=== PATIENT | female | born 1965 | race Caucasian/White ===

== ENCOUNTER 2024-11-30 03:51 | Inpatient (IN) | payer BC, SELFPAY ==
[2024-11-29 17:43] VITALS: BP 160/88
[2024-11-29 17:59] LABS: % Basophils 0.8 % (0-2); % Eosinophils 0.9 % (0-6); % Immature Granulocytes 0.3 % (0-0.5); % Lymphocytes 18.6 % (20.5-51.1); % Monocytes 4.9 % (1.7-9.3); % Neutrophils 74.5 % (42.2-75.2); Absolute Basophils 0.1 10^3/uL (0-0.2); Absolute Eosinophils 0.1 10^3/uL (0-0.7); Absolute Lymphocytes 1.6 10^3/uL (1.2-3.4); Absolute Monocytes 0.4 10^3/uL (0.1-0.6); Absolute Neutrophils 6.5 10^3/uL (1.4-6.5); Hematocrit 39.6 % (37.0-47.0); Hemoglobin 13.2 g/dL (12.0-16.0); Mean Corp Hgb Conc. 33.3 g/dL (33.0-37.0); Mean Corpuscular Hgb 29.8 pg (27.0-31.0); Mean Corpuscular Volume 89.4 fL (81.0-99.0); Mean Platelet Volume 8.9 fL (7.4-10.4); Nucleated Red Blood Cells % 0 %; Platelet Count 307 10^3/uL (130-400); Red Blood Cell Count 4.43 10^6/uL (4.20-5.40); Red Cell Dist. Width 12.7 % (11.5-14.5); White Blood Cell Count 8.8 10^3/uL (4.8-10.8)
[2024-11-29 18:12] LABS: PT 17.5 Sec (11.4-14.6)
[2024-11-29 18:28] LABS: ALT (SGPT) 20 U/L (0-35); AST (SGOT) 19 U/L (14-36); Albumin 4.2 g/dl (3.5-5.0); Alkaline Phosphatase 78 U/L (38-126); Blood Urea Nitrogen 15 mg/dl (7-17); Calcium 9.6 mg/dl (8.4-10.2); Carbon Dioxide 29 mmol/L (22-30); Chloride 104 mmol/L (98-107); Glucose 107 mg/dl (70-99); Potassium 4.6 mmol/L (3.5-5.1); Sodium 141 mmol/L (135-145); Total Bilirubin 0.4 mg/dl (0.2-1.3); Total Protein 7.3 g/dl (6.3-8.2); eGFR > 60.00
[2024-11-29 18:34] LABS: Troponin I < 0.012 ng/ml
[2024-11-29 20:15] VITALS: BP 149/85
[2024-11-29 20:16] VITALS: BMI 34.1
[2024-11-29 21:00] VITALS: BP 151/67
--- NOTE | 2024-11-29 21:16 | ED.GENMED ---
History of Present Illness
General
Chief Complaint: Cardiac Symptoms
Source: patient
Exam Limitations: none
Time Seen by Provider: 11/29/24 21:01
Nursing documentation reviewed up to this point in time: agreed with except (She denies shortness of breath to me)
History of Present Illness
History of Present Illness:
59-year-old female with past medical history of asthma/COPD, pulmonary embolism on Coumadin presents to the emergency room for evaluation of chest pain. Patient reports onset of symptoms early this morning at 4 AM while she was sleeping�woke her up
from sleep. Has been constant since that time. She reports a tightness in the chest right greater than left. Does not radiate. Worse with breathing. No relieving factors noted. Has been constant all day which prompted her to come to the ER.
She says she has had similar symptoms with PE in the past. She denies any shortness of breath. Denies any nausea, vomiting, abdominal pain. She denies any swelling or pain in the legs. She denies any other complaints. She reports compliance
with her Coumadin.
Past History
Past History
ED Past Medical History: Other (Pulmonary embolism)
Social History
Tobacco: Non-smoker
Drug: None
Review of Systems
Review of Systems
All Other Systems: ROS reviewed and negative except as documented in HPI and ROS
Constitutional: Denies fever or chills
Respiratory: Denies cough or trouble breathing
Cardiac: Reports chest pain
ABD/GI: Denies abdominal pain, nausea or vomiting
: Denies flank pain
Musculoskeletal: Denies edema, neck pain or back pain
Neurological: Denies headache
Phy Exam
Physical Exam
Physical Exam:
General: Awake, alert, oriented x3; no acute distress
Head: Normocephalic, atraumatic
Eyes: Conjunctiva normal
Throat: Airway intact, handling secretions
Neck: Trachea midline, supple without meningismus
Lungs: Clear to auscultation bilaterally, no wheezing, rales, rhonchi
Heart: Regular rate and rhythm, no murmurs, gallops, or rubs
Abd: Soft, non distended, mild upper abdominal tenderness
Neuro: No gross deficits
Skin: no rash in area of concern
Extremities: No edema in extremities, no calf tenderness, equal pulses in all extremities
Scores
Heart Failure Risk
Heart Failure Risk Score: Not Applicable
Heart Score for Chest Pain Patients
STEMI patient?: No
History: Slightly or Non-Suspicious
ECG: Normal
Age: >45 - <65 years
Risk Factors: 1 or 2 Risk Factors
Troponin: </= Normal Limit
Heart Score for Chest Pain Patients: 2
Heart Score Risk: 2.5% MACE over next 6 weeks
PE Wells Score
Symptoms of DVT: No
No alternative diagnosis better explains the illness: Yes
Tachycardia with pulse > 100: No
Immobilization (>=3 days) or surgery within previous 4 weeks: No
Prior history of DVT or pulmonary embolism: Yes
Presence of hemoptysis: No
Presence of malignancy: No
Pulmonary Embolism Risk Score: 7.5
Probability of PE: Pt is high risk
Withdrawal Assessment of Alcohol
Withdrawal Assessment Completed?: Not applicable
Course
Orders/Labs/Results
Orders:
Orders
11/29/24 17:38
ECG [Electrocardiogram (*1)] Urgent
Reason for Study: Chest Pain
EKG- Treatment ONCE
11/29/24 17:51
Complete Blood Count/With Diff Urgent
Comprehensive Metabolic Panel Urgent
Lipase Urgent
Comment: ADD ON
PT/INR [Prothrombin Time] Urgent
Troponin I Urgent
11/29/24 21:03
CT Chest PE Study Urgent
Comment:
Reason For Exam: chest pain, SOB, h/o PE
11/29/24 21:48
Troponin I Urgent
11/29/24 22:52
US Abdomen Limited Urgent
Reason For Exam: right sided CP, abdnormal GB on CT
11/29/24 23:02
Add On- LAB Urgent
Tests Added?: lipase
11/30/24 00:03
CefTRIAXone [Rocephin] 1,000 mg IV NOW STA
MetroNIDAZOLE IVPB 500 mg IVPB NOW MetroNIDAZOLE 500 MG/100 ML [Flagyl 500 mg] 100 ml IV NOW
Abnormal Lab Results
11/29/24
17:51
Lymphocytes % 18.6 L %
(20.5-51.1)
PT 17.5 H Sec
(11.4-14.6)
Glucose 107 H mg/dl
(70-99)
11/29/24 17:51
11/29/24 17:51
Vital Signs
Initial and Last Documented VS:
Initial Vital Signs
Temp Pulse Resp BP Pulse Ox
36.7 C 98 16 160/88 98
11/29/24 17:43 11/29/24 17:43 11/29/24 17:43 11/29/24 17:43 11/29/24 17:43
Last Documented Vital Signs
Temp Pulse Resp BP Pulse Ox
36.7 C 82 15 149/80 98
11/29/24 17:43 11/29/24 21:15 11/29/24 21:15 11/29/24 23:45 11/29/24 23:45
MDM/Problems Addressed
Differential Diagnosis Includes:
PE, angina/ACS, costochondritis, pneumonia, pneumothorax, GERD, hepatobiliary pathology
MDM/Problems Addressed:
59-year-old female presents for right atypical chest pain right sided constant since 4 AM. She says similar to prior PEs. She is on Coumadin reports compliance. Hypertensive otherwise normal vitals. Physical exam as above. EKG shows sinus rhythm
no acute ischemic changes. She had labs sent in triage including a CBC and a CMP which showed no clinically significant abnormalities. Her initial troponin was undetectable. Her INR is subtherapeutic at 1.4. Will check CT chest to rule out PE.
Monitor closely reassess after the above.
CT chest reviewed shows no PE but does show incidentally findings concerning for cholecystitis�Limited evaluation given this is a CT chest will send for dedicated ultrasound of the upper abdomen. She denies any history of gallbladder issues; she
does have tenderness on exam. Reassess after the above.
Right upper quadrant ultrasound is positive for acute cholecystitis. Will treat antibiotics. Discussed with general surgery for consultation. Discussed with hospitalist for admission.
Chronic conditions affecting care:
PE on Coumadin
Acute Exacerbation and/or Progression of Chronic Illness:
Hypertensive
Acute Exacerbation and/or Progression of Chronic Illness: HTN
*Radiology
Radiology exam reviewed: radiology read reviewed
*Pulse Oximetry
Patient hypoxic: no
*EKG
Interpreted by ED Provider?: Yes
Heart Rate: 90
Rate: normal
Rhythm: sinus
[place]: normal axis
Interval: normal interval
QRS Pattern: normal QRS
Ischemia: no ischemia
*Critical Care Note
Total Time (30-74mins, 75-104mins- exclusive of procedures): Not Applicable
Data Reviewed
Review of Other/Old Records Reveals: Labs and Records
Source: patient and records
Patient Management
Discussion with other providers: Hospitalist (Discussed with hospitalist) and [employer] (Discussed with general surgeon)
Escalation/DeEscalation of care consider admission/obs:
Admission indicated
ED Attending Note
-
Portions of this chart may have been created with voice recognition software.� Occasional wrong word or��sound alike� substitutions may have occurred due to the inherent limitations of voice recognition software.
Discharge Plan
Departure
Prescriptions:
No Action
tramadol 50 MG tablet
100 mg PO BID
albuterol sulfate [Ventolin HFA] 90 MCG/PUFF HFA aerosol inhaler
2 puff inhalation Q4H PRN (Reason: sob)
cholecalciferol (vitamin D3) [Vitamin D3] 400 UNITS tablet
2,000 units PO DAILY
armodafinil [Nuvigil] 250 MG tablet
250 mg PO DAILY
eukkeinlgkru-nsc-csuy-FA-vit K [Multi For Her] 1 EACH capsule
1 ea PO DAILY
sertraline 100 MG tablet
100 mg PO DAILY
simvastatin 20 MG tablet
20 mg PO HS
ferrous gluconate 256 MG tablet
28 mg PO BID
Patient Comments:
patient ordered 28 mg tablet, difficulty making this entry.
warfarin [Jantoven] 5 MG tablet
5 mg PO TONIGHT AT 1800 Qty: 30 0RF
docusate sodium 100 MG capsule
100 mg PO BID Qty: 60 0RF
amoxicillin-pot clavulanate 1 TABLET tablet
1 tab PO Q12 Qty: 4 0RF
enoxaparin 80 MG/0.8 ML syringe
80 mg SC Q12H Qty: 14 0RF
Referrals:
Jared Thompson MD [Family Provider] -
Interventions
Interventions:
*Risk Screen - Suicide Last Done: 11/29/24 17:43
*General Assessment Last Done: 11/29/24 21:00
*Neglect/Abuse Screening Last Done: 11/29/24 17:43
*ED- Fall Risk Assessment Last Done: 11/29/24 21:00
*ED COVID-19 Vaccine History Last Done: 11/29/24 21:00
ED- Pulmonary Assessment Last Done: 11/29/24 20:16
ED- Cardiac Assessment Last Done: 11/29/24 20:16
Discharge Date and Time
Print Language: KHMER
[2024-11-29 22:20] LABS: Troponin I < 0.012 ng/ml
[2024-11-29 23:45] VITALS: BP 149/80
[2024-11-29 23:47] LABS: Lipase 280 U/L (23-300)
[2024-11-30] VITALS (17 sets, daily range): BP systolic 91–158; BP diastolic 58–84; BMI 35.6
[2024-11-30] MEDS: MORPHINE SULFATE 4 MG IV (00:27)
[2024-11-30] MEDS: ROCEPHIN 1000 MG IV (00:30)
[2024-11-30] MEDS: FLAGYL 500 MG 100 IV (00:44)
[2024-11-30] MEDS: DILAUDID 0.5 MG IV ×4 (01:59→17:05)
--- NOTE | 2024-11-30 03:46 | HPS.HSE ---
Family Physician
-
Family Physician: Jared Thompson MD
Chief Complaint
-
Abd Pain
History of Present Illness
Patient is a 59y F with PMH significant for hypercoagulable state / prior PEs who presents to ED complaining of abdominal pain. Patient states that pain woke her from sleep around 4 AM on Friday morning. the pain was in the R lower chest /
upper abdomen. No radiation of the pain. No associated SOB, N/V, fevers / chills, etc. Patient states that pain was similar to her prior PE episodes. She presented to the ED for further evaluation after the pain persisted throughout the day.
Evaluation in the ED reveals no evidence for PE, but positive acute cholecystitis.
Patient is on warfarin for history of PE (last was 10 years ago). Last dose of warfarin was Friday evening. INR today is subtherapeutic at 1.40.
Medical History
Past Medical History
Past Medical History: Reports Other
Additional Past Medical History:
Hypercoagulable State / Pulmonary Embolism x 2
Obesity
Anxiety / Depression
Chronic Back Pain
Past Surgical History: Reports Other
Additional Past Surgical History:
Bilateral Breast Reduction
Social History
Tobacco: Former Smoker (Quit smoking at age 40. Approx 10 pack years total use.)
Alcohol: None
Drug: None
Family History
Family History: Not pertinent
Allergies / Home Medications
Allergies reflects when Allergies were last updated in [facility].
Home Medications with original date entered in [facility]
Allergy/Medication List:
Allergies
Allergy/AdvReac Type Severity Reaction Status Date / Time
alcohol Allergy Unknown Verified 11/29/24 17:46
bupropion Allergy Rash Verified 11/29/24 17:46
tape Allergy Rash Uncoded 11/29/24 17:46
Home Medications
cholecalciferol (vitamin D3) 10 mcg (400 unit) tablet (Vitamin D3) 2,000 units PO DAILY 11/15/15
ferrous gluconate 256 mg (28 mg iron) tablet 28 mg PO BID 06/11/15
nyhqobvjd-ivc-xdnw fumarate 18 mg-FA 600 mcg-vit K 40 mcg capsule (Multi For Her) 1 ea PO DAILY 06/11/15
simvastatin 20 mg tablet 20 mg PO HS 06/11/15
tramadol 50 mg tablet 100 mg PO BID 06/11/15
bupropion HCl 300 mg 24 hr tablet, extended release 300 mg PO DAILY 11/30/24
dextroamphetamine-amphetamine 20 mg tablet 20 mg PO BID 11/30/24
fluoxetine 20 mg tablet 20 mg PO DAILY 11/30/24
riboflavin (vitamin B2) 400 mg tablet 400 mg PO DAILY 11/30/24
tramadol 37.5 mg-acetaminophen 325 mg tablet 1 tab PO BID PRN Pain 11/30/24
warfarin 10 mg tablet 10 mg PO MOTUWETHFRSA 11/30/24
warfarin 5 mg tablet 5 mg PO DOAN 11/30/24
Review of Systems
-
History Source: Patient
A 12 point ROS was completed and negative except as noted: Yes
Constitutional: Denies Fever or Chills
Respiratory: Denies Cough or Trouble Breathing
Cardiac: Reports Chest Pain
Abdomen/GI: Reports Abdominal Pain; Denies Nausea, Vomiting or Diarrhea
: Denies Dysuria or Frequency
Musculoskeletal: Denies Joint Pain or Edema
Neurological: Denies Dizzy or Headache
Physical Exam
Vital Signs
Vital Signs
Temp Pulse Resp BP Pulse Ox
98.0 F 82 15 158/76 100
11/29/24 17:43 11/29/24 21:15 11/29/24 21:15 11/30/24 01:30 11/30/24 01:30
Physical Exam
General: Other (59y F in no acute distress.)
HEENT: Moist mucous membranes and PERRLA
Respiratory: Clear; No Wheezes, Rales or Rhonchi
Cardiac: S1/S2 and Regular Rhythm; No Murmur
GI: Soft, Non Distended, Normal Bowel Sounds and Other (Pos RUQ tenderness and voluntary guarding.)
Musculoskeletal: No Clubbing, No Cyanosis and No Edema
Neuro: AO x 3
Laboratory Results
-
11/29/24 17:51
11/29/24 17:51
Laboratory Results
PT 17.5 Sec (11.4-14.6) H 11/29/24 17:51
INR 1.40 11/29/24 17:51
Total Bilirubin 0.4 mg/dl (0.2-1.3) 11/29/24 17:51
AST 19 U/L (14-36) 11/29/24 17:51
ALT 20 U/L (0-35) 11/29/24 17:51
Alkaline Phosphatase 78 U/L (38-126) 11/29/24 17:51
Troponin I < 0.012 ng/ml 11/29/24 21:48
Lipase 280 U/L (23-300) 11/29/24 17:51
Impression/Plan
-
A/P: Patient is a 59y F with PMH significant for hypercoagulable state and obesity who presents to ED complaining of abdominal pain.
Acute Cholecystitis
- Admit for further evaluation and treatment.
- US with gallbladder wall thickening, pericholecystic fluid and positive Shepard's sign.
- IV Zosyn for now. NPO, supportive care / pain control.
- Surgery consulted for possible cholecystectomy.
Hypercoagulable State
History of Pulmonary Emboli x 2
- Undefined hypercoagulable state. Prior PE x 2 - most recent was 10 years ago.
- INR currently subtherapeutic and last dose of warfarin was Friday evening (5mg).
- Follow daily INR.
- If surgery is planned for later today, would begin IV heparin post-op and bridge with Coumadin until INR therapeutic.
- If surgery postponed for any period, would bridge with heparin pre- and post-op.
Anxiety / Depression
- Hold Adderall acutely.
- Continue fluoxetine / bupropion.
Chronic Back Pain
- Continue standing tramadol.
- Dilaudid PRN for acute pain due to cholecystitis.
DVT Prophylaxis: IV heparin to Coumadin bridge as noted above.
Code Status: Full
[2024-11-30 06:12] LABS: Hematocrit 38.1 % (37.0-47.0); Hemoglobin 12.9 g/dL (12.0-16.0); Mean Corp Hgb Conc. 33.9 g/dL (33.0-37.0); Mean Corpuscular Hgb 29.7 pg (27.0-31.0); Mean Corpuscular Volume 87.6 fL (81.0-99.0); Mean Platelet Volume 8.7 fL (7.4-10.4); Platelet Count 250 10^3/uL (130-400); Red Blood Cell Count 4.35 10^6/uL (4.20-5.40); Red Cell Dist. Width 12.7 % (11.5-14.5); White Blood Cell Count 8.2 10^3/uL (4.8-10.8)
[2024-11-30 06:21] LABS: PT 18.4 Sec (11.4-14.6)
[2024-11-30 06:49] LABS: ALT (SGPT) 606 U/L (0-35); Albumin 4.5 g/dl (3.5-5.0); Alkaline Phosphatase 189 U/L (38-126); Blood Urea Nitrogen 13 mg/dl (7-17); Calcium 9.4 mg/dl (8.4-10.2); Carbon Dioxide 27 mmol/L (22-30); Chloride 103 mmol/L (98-107); Direct Bilirubin 0.8 mg/dl (0.0-0.4); Estimated Creatinine Clearance 83 ml/min; Glucose 147 mg/dl (70-99); Potassium 4.6 mmol/L (3.5-5.1); Sodium 140 mmol/L (135-145); Total Bilirubin 1.3 mg/dl (0.2-1.3); Total Protein 7.1 g/dl (6.3-8.2); eGFR > 60.00
[2024-11-30 06:56] LABS: AST (SGOT) 1020 U/L (14-36)
[2024-11-30] MEDS: ZOFRAN 4 MG IV ×2 (07:17→18:09)
[2024-11-30] MEDS: PROTONIX IV 40 MG IV (08:25)
[2024-11-30] MEDS: ULTRAM 100 MG PO (08:26)
[2024-11-30] MEDS: NSS (PRESERVATIVE FREE) 10 ML IV (08:26)
[2024-11-30] MEDS: PROZAC 20 MG PO (08:26)
[2024-11-30] MEDS: WELLBUTRIN XL (24 hour extended release) 300 MG PO (08:28)
--- NOTE | 2024-11-30 09:51 | CON.GS ---
Addendum entered and electronically signed by Ej Luna MD 11/30/24 17:34:
Patient seen and examined.
Patient is a 59 yo F with a PMH notable for obesity, HLD, DVT/PE (on Coumadin, LD 5 mg on 5/4 PM, current INR subtherapeutic at 1.5), and s/p bilateral breast reduction who presents with acute onset of epigastric abdominal pain. Symptoms began
yesterday morning at approximately 4 AM. She has persistent epigastric and RUQ discomfort. She denies any prior history of similar abdominal pain or discomfort. No prior knowledge of gallstones or attacks of biliary colic. She denies any fatty
food intake prior to her the onset of her symptoms. No fevers, chills, jaundice, pale stools, or tea colored urine. No family history notable for gallbladder removal.
Gen: NAD
Abd: soft, tender in epigastrium and RUQ, obese, ND, non-peritoneal
Labs, ultrasound, and CT scan imaging reviewed
Patient is a 59 yo F p/w abdominal pain most likely biliary in origin
Marked elevation in LFTs raises question/concern for possible choledocholithiasis. She also has adjacent fluid collections to the GB read as cysts; less likely that these represent a contained perforation though that would exaplin her LFT rise.
The natural history and pathophysiology of biliary and stone disease were discussed. Anatomy was reviewed. Role and indications for cholecystectomy were reviewed. Given her marked elevation in LFTs we will plan on an MRI of the abdomen to rule
out alternative pathology of the liver and/or choledocholithiasis. GI consult noted. Timing of cholecystectomy pending work-up.
-- MRI abdomen
-- Abx: Zosyn
-- Trend labs including CMP and coags
-- Hold Coumadin, OK for Hep gtt
-- Timing of cholecystectomy pending above
Original Note:
Consultation
-
Date/Time Consultation Requested: 11/30/2024 00:04 AM
Date/Time Consultation Performed: 11/30/2024 9:35 AM
Requesting Provider: Rafy Jaimes
Performing Provider: Dr. Ej Luna
Reason for Consultation: Acute Cholecysitis
Medical History
-
Chief Complaint: Severe abdominal pain
History of Present Illness:
Patient is a 59-year-old female, full code past medical history significant for multiple episodes of pulmonary embolism, most recent being 10 years ago, currently on warfarin who presents to the ED complaining of severe sudden epigastric abdominal
pain on 11/28/2024 at around 4 AM. Not associated with nausea, vomiting, fevers, chills, chest pain, diarrhea, heavy alcohol use. No previous history of gallstones, recent procedures, trauma, similar episodes in the past.
Chest CT on admission shows distended gallbladder, gallbladder sludge, cholelithiasis and gallbladder wall thickening indicating cholecystitis.
Abdominal ultrasound on admission also shows evidence of acute cholecystitis.
Labs today show direct bilirubin at 0.8, elevated AST 1020 + ALT 606 (AST 19 and ALT 20 on admission) , alkaline phosphatase 189 (78 on admission). Abdominal MRI is ordered to check for perforation of gallbladder or stones within the common biliary
duct.
Patient's most recent INR on warfarin 10 Mg is 1.4 and last dose was Friday evening.
Past Medical History
Past Medical History: Other (Pulmonary embolism)
Social History
Tobacco: Former Smoker
Alcohol: None
Drug: None
Family History
Family History: Reviewed & Not Pertinent
Allergies / Home Medications
Allergy/AdvReac Type Severity Reaction Status Date / Time
alcohol Allergy Unknown Verified 11/29/24 17:46
bupropion Allergy Rash Verified 11/29/24 17:46
tape Allergy Rash Uncoded 11/29/24 17:46
�Medication �Instructions �Recorded �Confirmed �Type
cholecalciferol (vitamin D3) 10 2,000 units PO DAILY 06/11/15 11/30/24 History
mcg (400 unit) tablet (Vitamin D3)
ferrous gluconate 256 mg (28 mg 28 mg PO BID 06/11/15 11/30/24 History
iron) tablet
ysmmdkzyg-uuo-yzvp fumarate 18 1 ea PO DAILY 06/11/15 11/30/24 History
mg-FA 600 mcg-vit K 40 mcg capsule
(Multi For Her)
simvastatin 20 mg tablet 20 mg PO HS 06/11/15 11/30/24 History
tramadol 50 mg tablet 100 mg PO BID 06/11/15 11/30/24 History
bupropion HCl 300 mg 24 hr tablet, 300 mg PO DAILY 11/30/24 11/30/24 History
extended release
dextroamphetamine-amphetamine 20 20 mg PO BID 11/30/24 11/30/24 History
mg tablet
fluoxetine 20 mg tablet 20 mg PO DAILY 11/30/24 11/30/24 History
riboflavin (vitamin B2) 400 mg 400 mg PO DAILY 11/30/24 11/30/24 History
tablet
tramadol 37.5 mg-acetaminophen 325 1 tab PO BID PRN Pain 11/30/24 11/30/24 History
mg tablet
warfarin 10 mg tablet 10 mg PO MOTUWETHFRSA 11/30/24 11/30/24 History
warfarin 5 mg tablet 5 mg PO DOAN 11/30/24 11/30/24 History
Review of Systems
-
History Source: Patient
All other systems: Negative unless noted
Abdomen/GI: Abdominal Pain
A 10 point review of systems was completed, and was negative except as per HPI.
Physical Exam
Vital Signs
Temp Pulse Resp BP Pulse Ox
98 F 85 15 132/64 97
11/30/24 07:00 11/30/24 08:19 11/29/24 21:15 11/30/24 08:19 11/30/24 07:30
11/29/24 11/30/24 12/01/24
06:59 06:59 06:59
Actual Weight 90 kg
Body Mass Index (BMI) 34.1
Lab Results
11/30/24 06:04
05/06/25 06:04
WBC 8.2 10^3/uL (4.8-10.8) 11/30/24 06:04
Hgb 12.9 g/dL (12.0-16.0) 11/30/24 06:04
Hct 38.1 % (37.0-47.0) 11/30/24 06:04
Plt Count 250 10^3/uL (130-400) 11/30/24 06:04
Abs Immat Gran (auto) 0.0 10^3/uL (0-0.05) 11/29/24 17:51
Neutrophils % 74.5 % (42.2-75.2) 11/29/24 17:51
Physical Exam
General: Well Developed
Respiratory: Clear
Cardiac: S1/S2 and Regular Rhythm; Negative Murmur
GI: Soft, Non Distended, Normal Bowel Sounds and Tender (Mild epigastric tenderness)
Musculoskeletal: No Clubbing, No Cyanosis and No Edema
Skin: Warm and Dry
Neuro: Awake, Alert, Oriented and AO x 3
Data Reviewed
-
CT Scan: Report Reviewed by me and Discussed with Physician
Ultrasound: Report Reviewed by me and Discussed with Physician
Labs: Labs Reviewed by me and Discussed with Physician
Assessment / Plan
-
Acute Cholecystitis confirmed on CT abdomen
Elevated transaminases
Elevated direct bilirubin:
- Laparoscopic Cholecystectomy pending MRI abdomen to check for perforation of gallbladder and stones within common bile duct.
- Chest CT on admission shows distended gallbladder, gallbladder sludge, cholelithiasis and gallbladder wall thickening indicating cholecystitis.
- Abdominal US with gallbladder wall thickening, pericholecystic fluid and positive Shepard's sign.
- Continue IV Zosyn for now
- continue NPO
- Continue protonix for GI ppx
- Pain control with tramadol, Tylenol, and Dilaudid
- GI consulted
History of Pulmonary Emboli:
- Prior PE x 2 - most recent episode was 10 years ago. Cause is unknown.
- INR currently subtherapeutic (1.5), normally is between 2-3 as stated by patient.
- Follow daily INR.
- Plan for FFP before surgery to reduce the risk of perioperative bleeding.
- If surgery is planned for later today, would begin IV heparin post-op and bridge with Coumadin until INR therapeutic.
- If surgery postponed for any period, would bridge with heparin pre- and post-op.
Anxiety
Depression:
- Hold Adderall
- Continue fluoxetine and bupropion.
Chronic Back Pain:
- Continue standing tramadol.
- Dilaudid PRN for acute pain due to cholecystitis.
Hyperlipidemia:
- Continue Lipitor
DVT Prophylaxis: IV heparin to Coumadin bridge as noted above.
Code Status: Full
--- NOTE | 2024-11-30 10:32 | CON.GI ---
Addendum entered and electronically signed by Brandy Hawkins MD 11/30/24 15:26:
I saw and examined the patient.
The district medical examiner note was reviewed and I agree with the note.
-- Acute calculus cholecystitis
-- Elevated test-AST 1020/ALT 66/alkaline phosphatase 189/total bilirubin 1.3-- (labs 11/30). AST/ALT normal on admission . No hypotension recorded
-- Multiple PE on warfarin. Last dose 11/28. INR 1.5 ( 11/30 )
plan
Follow-up MRI/MRCP. If positive for CBD stone will plan ERCP
Check hepatitis panel
trend LFT
Continue antibiotics
follow up with surgery
Original Note:
Consultation
-
Date/Time Consultation Requested: 11/30/24
Date/Time Consultation Performed: 11/30/24
Requesting Provider: Dr Brandy Hawkins
Performing Provider: Dr Mango Godoy
Reason for Consultation: Cholecystitis
Medical History
Chief Complaint / HPI
Chief Complaint: Right upper quadrant pain
History of Present Illness:
59-year-old female with past history of pulmonary embolism on warfarin presented with severe right upper quadrant pain. First episode of PE was at age 40 and second episode at age 49.
Patient states that she woke up at 4 AM due to severe RUQ, moderate intensity, nonradiating. Patient denies nausea/vomiting/fever/chills. Patient states that she took tramadol at 7 AM which did not help with the pain. She states that she takes
tramadol for chronic back pain. No history of prior gallstones, recent procedures, trauma.
Workup in the ED, chest CT reveals distended gallbladder, gallbladder sludge, cholelithiasis, moderate gallbladder wall thickening with intramural edema. LFTs were normal on admission. Lab Chemistry today shows significant rise of LFTs (AST 1020,
ALT 606), direct bilirubin 0.8, alk phosp 189. GI is consulted to make further recommendation.
Past Medical History
Past Medical History: Hypercholesterolemia and Other (PE on warfarin )
Past Surgical History: Other (Bilateral breast reduction)
Social History
Tobacco: Former Smoker (Smoked for the 20 years and quit at age 40)
Alcohol: None
Drug: None
Living: With Family
Family History
Family History: Reviewed & Not Pertinent
Allergies / Home Medications
Allergy/AdvReac Type Severity Reaction Status Date / Time
alcohol Allergy Unknown Verified 11/29/24 17:46
bupropion Allergy Rash Verified 11/29/24 17:46
tape Allergy Rash Uncoded 11/29/24 17:46
�Medication �Instructions �Recorded
cholecalciferol (vitamin D3) 10 2,000 units PO DAILY 06/11/15
mcg (400 unit) tablet (Vitamin D3)
ferrous gluconate 256 mg (28 mg 28 mg PO BID 06/11/15
iron) tablet
hqewfkmre-kmz-zihu fumarate 18 1 ea PO DAILY 06/11/15
mg-FA 600 mcg-vit K 40 mcg capsule
(Multi For Her)
simvastatin 20 mg tablet 20 mg PO HS 06/11/15
tramadol 50 mg tablet 100 mg PO BID 06/11/15
bupropion HCl 300 mg 24 hr tablet, 300 mg PO DAILY 11/30/24
extended release
dextroamphetamine-amphetamine 20 20 mg PO BID 11/30/24
mg tablet
fluoxetine 20 mg tablet 20 mg PO DAILY 11/30/24
riboflavin (vitamin B2) 400 mg 400 mg PO DAILY 11/30/24
tablet
tramadol 37.5 mg-acetaminophen 325 1 tab PO BID PRN Pain 11/30/24
mg tablet
warfarin 10 mg tablet 10 mg PO MOTUWETHFRSA 11/30/24
warfarin 5 mg tablet 5 mg PO DOAN 11/30/24
Review of Systems
-
All other systems: A 12 pt ROS was Negative except as stated above in HPI
Abdomen/GI: Reports Abdominal Pain (RUQ pain ); Denies Nausea or Vomiting
Vital Signs
Temp Pulse Resp BP Pulse Ox
98 F 85 15 132/64 97
11/30/24 07:00 11/30/24 08:19 11/29/24 21:15 11/30/24 08:19 11/30/24 07:30
Physical Exam
Exam
General: Comfortable
HEENT: Normocephalic and Anicteric
Respiratory: Clear
Cardiac: S1/S2 and Regular Rhythm
GI: Soft and Tender (RUQ tenderness, voluntary guarding, + shepard's sign )
Musculoskeletal: No Edema
Neuro: AO x 3
Psych: Calm
Results
WBC 8.2 10^3/uL (4.8-10.8) 11/30/24 06:04
Hgb 12.9 g/dL (12.0-16.0) 11/30/24 06:04
Hct 38.1 % (37.0-47.0) 11/30/24 06:04
MCV 87.6 fL (81.0-99.0) 11/30/24 06:04
Plt Count 250 10^3/uL (130-400) 11/30/24 06:04
Absolute Neuts (auto) 6.5 10^3/uL (1.4-6.5) 11/29/24 17:51
PT 18.4 Sec (11.4-14.6) H 11/30/24 06:04
INR 1.50 11/30/24 06:04
Sodium 140 mmol/L (135-145) 11/30/24 06:04
Potassium 4.6 mmol/L (3.5-5.1) 11/30/24 06:04
Chloride 103 mmol/L (98-107) 11/30/24 06:04
Carbon Dioxide 27 mmol/L (22-30) 11/30/24 06:04
BUN 13 mg/dl (7-17) 11/30/24 06:04
Creatinine 0.8 mg/dL (0.6-1.0) 11/30/24 06:04
Calcium 9.4 mg/dl (8.4-10.2) 11/30/24 06:04
Total Bilirubin 1.3 mg/dl (0.2-1.3) 11/30/24 06:04
AST 1020 U/L (14-36) H* 11/30/24 06:04
ALT 606 U/L (0-35) H* 11/30/24 06:04
Alkaline Phosphatase 189 U/L (38-126) H 11/30/24 06:04
Lipase 280 U/L (23-300) 11/29/24 17:51
Diagnostic Image Results:
Prior GI Procedures: none
EGD:
Colonoscopy:
Assessment / Plan
-
Assessment and plan
#Acute RUQ pain consistent with acute cholecystitis on abd US
#Significant elevation of LFT
# Hyperbilirubinemia
Abdominal ultrasound with gallbladder wall thickening, pericholecystic fluid and positive Shepard sign.
Continue IV antibiotics, IV Protonix
With significant elevation of LFTs, elevated direct bilirubin-- likely choledocholithiasis -- MRI abdomen
NPO for now until the MRI results
If + CBD stone then will plan for ERCP to dislodge/remove sludge/stone
General Surgery on board for potential laparoscopic cholecystectomy
Monitor LFT
History of PE currently on warfarin
Subtherapeutic INR 1.5. Monitor
Await MRI results.
IV heparin if surgery later today
# Anxiety/depression
# ADHD
# Chronic back pain
# Hyperlipidemia
-
-
Thank you for consultation and allowing me to participate in the patient's care. Please call the educational psychology professor GI physician during the after hours with any questions or concerns.
[2024-11-30] MEDS: ZOSYN 50 IV ×2 (11:15→17:05)
--- NOTE | 2024-11-30 12:31 | W.PN.HOSP.TC ---
Today's Communication/Plan
-
Assessment / Plan
Assessment / Plan
General: No Apparent Distress, Comfortable and Conversant
HEENT: NormoCephalic, Moist mucous membranes, Atraumatic
Respiratory: Clear and Non Labored Respirations
Cardiac: S1/S2 and Regular Rhythm; No Rub or Gallop
GI: Soft, RUQ TTP, Non Distended and Normal Bowel Sounds
Musculoskeletal: No Edema, no deformity
Skin: Warm and dry
: NO Shah
Neuro: Awake, Alert, Nonfocal/grossly intact
Psych: Calm and Intact Judgment/Insight
Ms. Merrill is a 59-year-old female with a past medical history of hypercoagulable state with multiple unprovoked PEs (on warfarin) who presented with upper abdominal pain. Abdominal ultrasound shows gallbladder stones and sludge with gallbladder
wall thickening which is suspicious for acute cholecystitis. She was admitted for further evaluation and management.
Acute calculus cholecystitis:
- Now with concern for choledocholithiasis with significantly uptrending LFTs
- N.p.o. pending MRCP and subsequent procedures
- Possible ERCP pending results of MRCP
- Eventual cholecystectomy during this admission
- Last dose of warfarin Friday evening 11/28, INR subtherapeutic at 1.5, will bridge with IV heparin drip and less going to the OR in the next few hours
- Appreciate input from GI and general surgery
- Continue antibiotics with Zosyn
- Pain control
Hypercoagulable state:
- History of multiple unprovoked PEs last of which was 10 years ago
- Anticoagulated with warfarin, INR today subtherapeutic at 1.5
- Will hold warfarin pending upcoming procedures, bridged with IV heparin
DVT prophylaxis: Holding home warfarin, bridge with heparin which can be held for any procedures
CODE STATUS: Full code
Total time spent on today's encounter was 45 minutes
Anticipated Discharge: 24 - 48 hours
Subjective/Interval History
-
Date of Service: November 30, 2024
Patient was seen and examined at bedside this morning. Still having right upper quadrant abdominal pain. Planning MRCP to evaluate for possible choledocholithiasis. Potential interventions pending MRI results.
Objective Data
-
Labs:
Laboratory Results
11/30/24
06:04
WBC 8.2
Hgb 12.9
Hct 38.1
Plt Count 250
PT 18.4 H
INR 1.50
Sodium 140
Potassium 4.6
Chloride 103
Carbon Dioxide 27
BUN 13
Creatinine 0.8
Glucose 147 H
Calcium 9.4
Total Bilirubin 1.3
AST 1020 H*
ALT 606 H*
Alkaline Phosphatase 189 H
Vital Signs:
Vital Signs
Temp Pulse Resp BP Pulse Ox
98 F 85 15 132/64 97
11/30/24 07:00 11/30/24 08:19 11/29/24 21:15 11/30/24 08:19 11/30/24 07:30
I&O
11/29/24 11/30/24 12/01/24
06:59 06:59 06:59
Intake Total 50 / 50
Balance 50 / 50
Review of Systems
-
History Source: Patient
All other systems: Reviewed and negative
Abdomen/GI: Reports Abdominal Pain
Physical Exam
-
General: No Apparent Distress
[2024-11-30 15:00] LABS: APTT 33.3 Sec (23.4-35.0)
[2024-11-30] MEDS: HEPARIN 25000 UNITS/250 ML IV (15:12)
[2024-11-30] MEDS: LIPITOR PO ×2 (21:41→22:43)
[2024-11-30] MEDS: ULTRAM PO ×2 (21:41→22:22)
[2024-11-30] MEDS: COMPAZINE 5 MG IV (22:35)
[2024-11-30 22:39] LABS: APTT > 200 Sec (23.4-35.0)
[2024-12-01] VITALS (15 sets, daily range): BP systolic 101–152; BP diastolic 59–82; BMI 35.9
[2024-12-01] MEDS: ZOSYN 50 IV ×4 (01:07→18:18)
[2024-12-01] MEDS: TYLENOL 650 MG PO (03:28)
[2024-12-01 07:10] LABS: % Basophils 0.6 % (0-2); % Immature Granulocytes 0.4 % (0-0.5); % Lymphocytes 13.3 % (20.5-51.1); % Monocytes 5.1 % (1.7-9.3); % Neutrophils 79.6 % (42.2-75.2); Absolute Eosinophils 0.1 10^3/uL (0-0.7); Absolute Monocytes 0.4 10^3/uL (0.1-0.6); Absolute Neutrophils 5.7 10^3/uL (1.4-6.5); Hematocrit 36.9 % (37.0-47.0); Hemoglobin 12.5 g/dL (12.0-16.0); Mean Corp Hgb Conc. 33.9 g/dL (33.0-37.0); Mean Corpuscular Hgb 29.3 pg (27.0-31.0); Mean Corpuscular Volume 86.6 fL (81.0-99.0); Mean Platelet Volume 8.9 fL (7.4-10.4); Nucleated Red Blood Cells % 0 %; Platelet Count 279 10^3/uL (130-400); Red Blood Cell Count 4.26 10^6/uL (4.20-5.40); Red Cell Dist. Width 13.1 % (11.5-14.5); White Blood Cell Count 7.1 10^3/uL (4.8-10.8)
[2024-12-01 07:13] LABS: INR 1.76; PT 20.7 Sec (11.4-14.6)
[2024-12-01 07:16] LABS: APTT 131.7 Sec (23.4-35.0)
[2024-12-01 08:11] LABS: AST (SGOT) 595 U/L (14-36); Albumin 3.8 g/dl (3.5-5.0); Alkaline Phosphatase 294 U/L (38-126); Blood Urea Nitrogen 10 mg/dl (7-17); Calcium 9.4 mg/dl (8.4-10.2); Carbon Dioxide 28 mmol/L (22-30); Chloride 105 mmol/L (98-107); Estimated Creatinine Clearance 86 ml/min; Glucose 104 mg/dl (70-99); Sodium 140 mmol/L (135-145); Total Bilirubin 1.2 mg/dl (0.2-1.3); Total Protein 6.6 g/dl (6.3-8.2); eGFR > 60.00
[2024-12-01 08:24] LABS: ALT (SGPT) 887 U/L (0-35)
[2024-12-01] MEDS: NSS (PRESERVATIVE FREE) 10 ML IV (09:04)
[2024-12-01] MEDS: PROTONIX IV 40 MG IV (09:04)
--- NOTE | 2024-12-01 09:59 | W.PN.GI.CBS2 ---
Today's Communication / Plan
-
follow up MRI/MRCP
Assessment / Plan
-
Assessment and plan
-- Acute calculus cholecystitis
-- Elevated test-AST 1020/ALT 66/alkaline phosphatase 189/total bilirubin 1.3-- (labs 11/30). AST/ALT normal on admission . No hypotension recorded
-- Multiple PE on warfarin. Last dose 11/28. INR 1.5 ( 11/30 )
plan
Follow-up MRI/MRCP. If positive for CBD stone will plan ERCP
Check hepatitis panel
trend LFT
Continue antibiotics
follow up with surgery
Total Time Spent with Patient (in minutes): 35
Subjective
Subjective
Date of Service: December 01, 2024
Abdominal pain is better. Awaiting MRI
Objective
Data Reviewed
Laboratory Data:
Laboratory Results
12/01/24 06:50
12/01/24 06:50
Laboratory Results
PT 20.7 Sec (11.4-14.6) H 12/01/24 06:51
INR 1.76 12/01/24 06:51
APTT 131.7 Sec (23.4-35.0) H 12/01/24 06:51
Total Bilirubin 1.2 mg/dl (0.2-1.3) 12/01/24 06:50
AST 595 U/L (14-36) H* 12/01/24 06:50
ALT 887 U/L (0-35) H* 12/01/24 06:50
Alkaline Phosphatase 294 U/L (38-126) H 12/01/24 06:50
Lipase 280 U/L (23-300) 11/29/24 17:51
Vital Signs and I&O:
Vital Signs
Temp Pulse Resp BP Pulse Ox
98.4 F 84 18 142/68 96
12/01/24 07:28 12/01/24 07:28 12/01/24 07:28 12/01/24 07:28 12/01/24 07:28
I&O
11/30/24 12/01/24 12/02/24
06:59 06:59 06:59
Intake Total 157.8 / 157.8
Balance 157.8 / 157.8
Physical Exam
Physical Exam
GI: Soft, Non Distended and Non Tender
[2024-12-01] MEDS: FIORICET 1 TAB PO (10:39)
[2024-12-01] MEDS: ULTRAM 100 MG PO ×2 (10:40→21:24)
[2024-12-01] MEDS: WELLBUTRIN XL (24 hour extended release) 300 MG PO (10:40)
[2024-12-01] MEDS: PROZAC 20 MG PO (10:40)
[2024-12-01] MEDS: COMPAZINE 5 MG IV (10:41)
--- NOTE | 2024-12-01 11:05 | CM ---
Patient seen at bedside.
Dx: Acute Cholecystitis
IA completed
Lives in a 2 story home with , 2 steps to enter, flight of steps to bed/bath
PLOF: Independent
Denies DME
Denies VN/had outpatient rehab in past for her back
PCP: Jared Thompson
Ph[facility]acy: [facility]
Plan: Home, no needs anticipated
[2024-12-01 13:06] LABS: INR 1.57; PT 19.2 Sec (11.4-14.6)
[2024-12-01 13:07] LABS: APTT 35.3 Sec (23.4-35.0)
--- NOTE | 2024-12-01 13:38 | W.PN.GS2 ---
Today's Communication / Plan
-
-- Laparoscopic cholecystectomy with possible cholangiogram
-- Heparin drip on hold
-- FFP
-- Repeat coags
Assessment / Plan
-
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
MRI confirms cholecystitis and rules out choledocholithiasis, evidence of more proximal CBD impingement by the gallbladder likely explaining her LFT abnormalities.
AVSS
Labs notable for normal WBC, stable Hb, downtrending bilirubin, LFTs, and slightly elevated ALP
The natural history and pathophysiology of biliary and stone disease was discussed. Workup thus far including ultrasound, CT scan, and most recent MRI were reviewed. Options for management were reviewed. Recommend and plan for laparoscopic
cholecystectomy with possible cholangiogram. The procedure itself, as well as the risks, benefits, and alternatives was discussed. Specifically, we discussed risk of bleeding, infection, injury to surrounding structures entheses bowel, bile
ducts), CBD injury, need for a procedure. Typical postprocedural recovery was discussed. Specifically, we discussed pain management, activity restrictions, and the 10 to 20% risks of fluctuation in GI function. All questions answered. Consent
signed.
Of note, hospitalist and nursing were updated regarding plans for above-noted surgery. Plan to hold heparin drip starting at 11 AM. FFP ordered to correct her INR which is slightly trended up. Repeat coags ordered.
-- Laparoscopic cholecystectomy with possible cholangiogram
-- NPO, IVF
-- Heparin drip on hold
-- FFP
-- Repeat coags
-- Antibiotics: Zosyn
Subjective Data
-
Date of Service: December 01, 2024
Pain improved but still present. Episode of nausea and vomiting overnight. No fevers.
Objective Data
-
Intake and Output
11/30/24 12/01/24 12/02/24
06:59 06:59 06:59
Intake Total 157.8 / 157.8 50 / 50
Balance 157.8 / 157.8
Intake:
IV piggybacks 157.8 / 157.8
Other:
Number of approximated MODERATE 1
amounts of urine
Vital Signs
Temp Pulse Resp BP Pulse Ox
98.5 F 86 16 145/81 98
12/01/24 11:30 12/01/24 11:30 12/01/24 11:30 12/01/24 11:30 12/01/24 11:30
Lab Results
12/01/24 06:50
12/01/24 06:50
Calcium 9.4 mg/dl (8.4-10.2) 12/01/24 06:50
Total Bilirubin 1.2 mg/dl (0.2-1.3) 12/01/24 06:50
Direct Bilirubin 0.8 mg/dl (0.0-0.4) H 11/30/24 06:04
AST 595 U/L (14-36) H* 12/01/24 06:50
ALT 887 U/L (0-35) H* 12/01/24 06:50
Alkaline Phosphatase 294 U/L (38-126) H 12/01/24 06:50
Total Protein 6.6 g/dl (6.3-8.2) 12/01/24 06:50
Albumin 3.8 g/dl (3.5-5.0) 12/01/24 06:50
Physical Exam
-
Gen: NAD
Abd: soft, tender in epigastrium and RUQ, positive Muphy's sign, non-peritoneal
Patient has a duron catheter: No
Patient has a central line: No
--- NOTE | 2024-12-01 13:43 | W.SUR.PREOP ---
Pre-Operative Surgical Note
-
I have examined this patient prior to the performance of the scheduled procedure.
The patient's condition is unchanged from the time of the current History and
Physical and the patient is able to undergo the scheduled procedure.
[2024-12-01 14:38] LABS: APTT 33.8 Sec (23.4-35.0)
--- NOTE | 2024-12-01 15:01 | W.PN.HOSP.TC ---
Today's Communication/Plan
-
Assessment / Plan
Assessment / Plan
General: No Apparent Distress, Comfortable and Conversant
HEENT: NormoCephalic, Moist mucous membranes, Atraumatic
Respiratory: Clear and Non Labored Respirations
Cardiac: S1/S2 and Regular Rhythm; No Rub or Gallop
GI: Soft, RUQ TTP, Non Distended and Normal Bowel Sounds
Musculoskeletal: No Edema, no deformity
Skin: Warm and dry
: NO Shah
Neuro: Awake, Alert, Nonfocal/grossly intact
Psych: Calm and Intact Judgment/Insight
Ms. Merrill is a 59-year-old female with a past medical history of hypercoagulable state with multiple unprovoked PEs (on warfarin) who presented with upper abdominal pain. Abdominal ultrasound shows gallbladder stones and sludge with gallbladder
wall thickening which is suspicious for acute cholecystitis. She was admitted for further evaluation and management.
Acute calculus cholecystitis:
- No evidence of choledocholithiasis on MRCP
- Maintain n.p.o., tentatively planning lap kameron this evening following FFP transfusion
- Last dose of warfarin Friday evening 11/28, INR subtherapeutic at 1.5, holding heparin pending OR, transfusing FFP
- Continue antibiotics with Zosyn
- Pain control
Hypercoagulable state:
- History of multiple unprovoked PEs last of which was 10 years ago
- Anticoagulated with warfarin, INR today subtherapeutic at 1.5
- Will hold warfarin and heparin pending upcoming procedures
DVT prophylaxis: Holding home warfarin, bridge with heparin following OR
CODE STATUS: Full code
Total time spent on today's encounter was 45 minutes
Anticipated Discharge: 24 - 48 hours
Subjective/Interval History
-
Date of Service: December 01, 2024
Patient was seen and examined at bedside. No evidence of choledocholithiasis on MRCP. Tentatively planning OR for lap kameron this evening following administration of FFP.
Objective Data
-
Labs:
Laboratory Results
12/01/24 12/01/24 12/01/24
06:50 06:51 12:26
WBC 7.1
Hgb 12.5
Hct 36.9 L
Plt Count 279
PT 20.7 H 19.2 H
INR 1.76 1.57
APTT 131.7 H 35.3 H
Sodium 140
Potassium 4.0
Chloride 105
Carbon Dioxide 28
BUN 10
Creatinine 0.8
Glucose 104 H
Calcium 9.4
Total Bilirubin 1.2
AST 595 H*
ALT 887 H*
Alkaline Phosphatase 294 H
12/01/24
14:14
WBC
Hgb
Hct
Plt Count
PT
INR
APTT 33.8
Sodium
Potassium
Chloride
Carbon Dioxide
BUN
Creatinine
Glucose
Calcium
Total Bilirubin
AST
ALT
Alkaline Phosphatase
Vital Signs:
Vital Signs
Temp Pulse Resp BP Pulse Ox
98.4 F 89 18 101/71 97
12/01/24 14:30 12/01/24 14:30 12/01/24 14:30 12/01/24 14:30 12/01/24 14:30
I&O
11/30/24 12/01/24 12/02/24
06:59 06:59 06:59
Intake Total 157.8 / 157.8
Balance 157.8 / 157.8
Review of Systems
-
History Source: Patient
All other systems: Reviewed and negative
Abdomen/GI: Reports Abdominal Pain
Physical Exam
-
General: No Apparent Distress
--- NOTE | 2024-12-01 15:48 | PTCARENOTE ---
Received pt in PACU for pre op holding. Blood consent signed. Card sent down to blood bank for FFP. Pt comfortable. Educated on signs and symptoms of a blood reaction. FFP started at 1545. This RN will remain next to pt. Will continue to monitor
--- NOTE | 2024-12-01 16:01 | PTCARENOTE ---
Pt walked to BR, 15 minute check after FFP started and pt has no signs or symptoms of a reaction. OR here and pt going back for procedure.
--- NOTE | 2024-12-01 17:56 | W.IMMPOSTOP ---
Surgical Immed Post Op Note
-
Primary Surgeon: Cheryl
Assisting Surgeon: Nicky, PGY1
Pre-op Diagnosis: Acute cholecystitis
Post-op Diagnosis: Acute cholecystitis
Procedure Performed: Laparoscopic cholecystectomy with IOC
Anesthesia Type: General
Specimen / Cultures:
1. Gallbladder
Estimated Blood Loss: 23 cc
Complications: None
Operative Findings:
1. Significantly dilated GB, thickened wall, edema, large stone
2. Critical view
3. IOC negative
4. Anterior and posterior artery with slips, duct with vieyra load stapler
[2024-12-01] MEDS: DILAUDID 0.5 MG IV (18:49)
[2024-12-01] MEDS: NORMOSOL-R/PLASMALYTE-A 1000 IV (20:22)
[2024-12-01] MEDS: LIPITOR 10 MG PO (21:24)
[2024-12-02] MEDS: ZOSYN 50 IV ×2 (00:26→06:04)
[2024-12-02] MEDS: DILAUDID 0.5 MG IV ×5 (03:00→22:26)
[2024-12-02 03:02] VITALS: BP 148/79
[2024-12-02] MEDS: ROXICODONE 5 MG PO (04:39)
[2024-12-02 05:39] LABS: % Basophils 0.2 % (0-2); % Immature Granulocytes 0.3 % (0-0.5); % Lymphocytes 6.4 % (20.5-51.1); % Monocytes 4.8 % (1.7-9.3); % Neutrophils 88.3 % (42.2-75.2); Absolute Lymphocytes 0.7 10^3/uL (1.2-3.4); Absolute Monocytes 0.5 10^3/uL (0.1-0.6); Absolute Neutrophils 9.5 10^3/uL (1.4-6.5); Hemoglobin 11.5 g/dL (12.0-16.0); Mean Corp Hgb Conc. 33.8 g/dL (33.0-37.0); Mean Corpuscular Hgb 29.9 pg (27.0-31.0); Mean Corpuscular Volume 88.3 fL (81.0-99.0); Nucleated Red Blood Cells % 0 %; Platelet Count 271 10^3/uL (130-400); Red Blood Cell Count 3.85 10^6/uL (4.20-5.40); White Blood Cell Count 10.8 10^3/uL (4.8-10.8)
[2024-12-02 05:51] LABS: APTT 34.6 Sec (23.4-35.0); INR 1.55; PT 19.1 Sec (11.4-14.6)
[2024-12-02 06:00] VITALS: BMI 34.6
[2024-12-02 06:51] LABS: ALT (SGPT) 506 U/L (0-35); AST (SGOT) 183 U/L (14-36); Alkaline Phosphatase 232 U/L (38-126); Blood Urea Nitrogen 14 mg/dl (7-17); Calcium 8.6 mg/dl (8.4-10.2); Carbon Dioxide 25 mmol/L (22-30); Chloride 105 mmol/L (98-107); Estimated Creatinine Clearance 96 ml/min; Glucose 135 mg/dl (70-99); Potassium 4.2 mmol/L (3.5-5.1); Sodium 139 mmol/L (135-145); Total Bilirubin 0.7 mg/dl (0.2-1.3); Total Protein 6.6 g/dl (6.3-8.2); eGFR > 60.00
[2024-12-02 07:51] VITALS: BP 150/76
--- NOTE | 2024-12-02 08:16 | W.PN.GS2 ---
Addendum entered and electronically signed by Ej Luna MD 12/02/24 11:56:
Hemoglobin stable. Remains normotensive with no signs of tachycardia and good urine output. Toradol added for improved pain control. Okay to continue with Heparin drip.
Original Note:
Today's Communication / Plan
-
-- Recheck Hb this afternoon
-- LFD
-- Pain control: Tylenol, Oxycodone (added increased 10 mg), IV Dilaudid, will add Toradol if Hb stable later this AM
-- Antibiotics: no need for further from perspective, Zosyn DC'd
-- DVT: Heparin drip, continue to hold PO anticoagulation
Assessment / Plan
-
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
POD#1 s/p laparoscopic cholecystectomy with IOC
Issues with postoperative abdominal pain. Differential includes MSK versus intraoperative hematoma/bleeding versus intra-abdominal injury. Most likely MSK. Slight drift in Hb down to 11.5, will need to monitor closely given her active
anticoagulation, recheck ordered. Will hold on Toradol until confirmation of stable Hb. Less likely to be an intra-abdominal injury given tolerance of diet and downtrending bilirubin and LFTs. Pain medications adjusted. Continue to monitor.
-- Recheck Hb this afternoon
-- LFD
-- Pain control: Tylenol, Oxycodone, IV Dilaudid, will add Toradol if Hb stable later this AM
-- IVF
-- Antibiotics: no need for further from perspective, Zosyn DC'd
-- DVT: Heparin drip, continue to hold PO anticoagulation
-- GI: PPI
Subjective Data
-
Date of Service: December 02, 2024
Issues with abdominal pain. Pain seemed to worsen and become quite severe starting at 3 AM. She denies any nausea or vomiting, able to tolerate a low-fat meal yesterday evening. She denies any dizziness or lightheadedness. Afebrile. Voiding.
Objective Data
-
Intake and Output
12/01/24 12/02/24 12/03/24
06:59 06:59 06:59
Intake Total 157.8 / 157.8 530 / 530
Balance 157.8 / 157.8 530 / 530
Intake:
Oral fluids 480 / 480
IV piggybacks 157.8 / 157.8 50 / 50
Other:
Number of approximated MODERATE 1 3
amounts of urine
Vital Signs
Temp Pulse Resp BP Pulse Ox
99.2 F 87 16 150/76 95
12/02/24 07:51 12/02/24 07:51 12/02/24 07:51 12/02/24 07:51 12/02/24 07:51
Lab Results
12/02/24 05:29
Calcium 8.6 mg/dl (8.4-10.2) 12/02/24 05:29
Total Bilirubin 0.7 mg/dl (0.2-1.3) 12/02/24 05:29
Direct Bilirubin 0.8 mg/dl (0.0-0.4) H 11/30/24 06:04
AST 183 U/L (14-36) H 12/02/24 05:29
ALT 506 U/L (0-35) H* 12/02/24 05:29
Alkaline Phosphatase 232 U/L (38-126) H 12/02/24 05:29
Total Protein 6.6 g/dl (6.3-8.2) 12/02/24 05:29
Albumin 4.0 g/dl (3.5-5.0) 12/02/24 05:29
Physical Exam
-
Gen: uncomfortable from pain
Abd: soft, tender in RUQ, obese, no palpable masses, incisions c/d/i - no erythema, ecchymosis or drainage
Patient has a duron catheter: No
Patient has a central line: No
[2024-12-02] MEDS: PROZAC 20 MG PO (08:22)
[2024-12-02] MEDS: ULTRAM 100 MG PO ×2 (08:22→20:20)
[2024-12-02] MEDS: WELLBUTRIN XL (24 hour extended release) 300 MG PO (08:22)
[2024-12-02] MEDS: NSS (PRESERVATIVE FREE) 10 ML IV (08:23)
[2024-12-02] MEDS: PROTONIX IV 40 MG IV (08:23)
[2024-12-02] MEDS: ROXICODONE 10 MG PO ×2 (09:20→14:13)
[2024-12-02] MEDS: HEPARIN 25000 UNITS/250 ML IV (09:28)
--- NOTE | 2024-12-02 10:29 | CM ---
Patient seen at bedside
POD#1 s/p laparoscopic cholecystectomy with IOC
pain control
PLAN: Home, no needs anticipated
to transport
[2024-12-02] MEDS: NORMOSOL-R/PLASMALYTE-A IV (10:38)
[2024-12-02 11:30] VITALS: BP 145/80
--- NOTE | 2024-12-02 11:39 | W.PN.GI.CBS2 ---
Today's Communication / Plan
-
Outpatient GI follow up
Assessment / Plan
-
Assessment and plan
-- Acute calculus cholecystitis s/p lap kameron 12/01. IOC negative
-- Elevated test-AST 1020/ALT 66/alkaline phosphatase 189/total bilirubin 1.3-- (labs 11/30). AST/ALT normal on admission . No hypotension recorded. liver test trending down now
-- Multiple PE on warfarin. Last dose 11/28. INR 1.5 ( 11/30 )
MRI abd 12/01
IMPRESSION: Cholelithiasis. There is a rim of increased T2-weighted signal surrounding the gallbladder lumen, compatible with gallbladder wall thickening and/or pericholecystic edema. In the correct clinical setting, these findings are highly
suggestive of acute cholecystitis.
No evidence for biliary ductal dilation. No evidence for bile duct calculus.
Of note, the superior and medial margin of the gallbladder slightly compresses the common hepatic duct, but without evidence for resultant more proximal bile duct dilation.
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 This measures approximately 1.3 cm transverse by 0.6 cm craniocaudal by 0.4 cm AP.Based on
recommendations from the [employer], follow-up MRI of the abdomen/MRCP is recommended in one year.
plan
Discussed about MRI abdomen finding. Discussed about pancreatic cyst which requires repeat MRI in 1 year. Patient verbalized understanding
hepatitis panel pending
trend LFT
continue follow up surgical recommendations
follow-up GI as outpatient. Will sign off
Total Time Spent with Patient (in minutes): 35
Subjective
Subjective
Date of Service: December 02, 2024
He underwent lap kameron yesterday. IOC negative
Objective
Data Reviewed
Laboratory Data:
Laboratory Results
12/02/24 05:29
Laboratory Results
PT 19.1 Sec (11.4-14.6) H 12/02/24 05:28
INR 1.55 12/02/24 05:28
APTT 34.6 Sec (23.4-35.0) 12/02/24 05:28
Total Bilirubin 0.7 mg/dl (0.2-1.3) 12/02/24 05:29
AST 183 U/L (14-36) H 12/02/24 05:29
ALT 506 U/L (0-35) H* 12/02/24 05:29
Alkaline Phosphatase 232 U/L (38-126) H 12/02/24 05:29
Lipase 280 U/L (23-300) 11/29/24 17:51
Vital Signs and I&O:
Vital Signs
Temp Pulse Resp BP Pulse Ox
97.9 F 85 20 145/80 97
12/02/24 11:30 12/02/24 11:30 12/02/24 11:30 12/02/24 11:30 12/02/24 11:30
I&O
12/01/24 12/02/24 12/03/24
06:59 06:59 06:59
Intake Total 157.8 / 157.8 530 / 530
Balance 157.8 / 157.8 530 / 530
Physical Exam
Physical Exam
GI: Soft and Tender
[2024-12-02 11:43] LABS: Hematocrit 36.6 % (37.0-47.0); Hemoglobin 12.6 g/dL (12.0-16.0)
[2024-12-02 11:52] LABS: APTT 92.4 Sec (23.4-35.0)
--- NOTE | 2024-12-02 12:03 | W.PN.HOSP.TC ---
Today's Communication/Plan
-
Assessment / Plan
Assessment / Plan
General: No Apparent Distress, Comfortable and Conversant
HEENT: NormoCephalic, Moist mucous membranes, Atraumatic
Respiratory: Clear and Non Labored Respirations
Cardiac: S1/S2 and Regular Rhythm; No Rub or Gallop
GI: Soft, surgical port sites CDI, mod TTP, Non Distended and Normal Bowel Sounds
Musculoskeletal: No Edema, no deformity
Skin: Warm and dry
: NO Shah
Neuro: Awake, Alert, Nonfocal/grossly intact
Psych: Calm and Intact Judgment/Insight
Ms. Merrill is a 59-year-old female with a past medical history of hypercoagulable state with multiple unprovoked PEs (on warfarin) who presented with upper abdominal pain. Abdominal ultrasound shows gallbladder stones and sludge with gallbladder
wall thickening which is suspicious for acute cholecystitis. She was admitted for further evaluation and management.
Acute calculus cholecystitis:
- No evidence of choledocholithiasis on MRCP
- s/p lap kameron 12/01
- Last dose of warfarin Friday evening 11/28, INR subtherapeutic at 1.5, restarted heparin gtt
- Discontinued antibiotics
- Pain control
- Anticipate d/c to home tomorrow with lovenox bridging to warfarin
Hypercoagulable state:
- History of multiple unprovoked PEs last of which was 10 years ago
- Anticoagulated with warfarin, INR today subtherapeutic at 1.5
- Restarted heparin gtt
DVT prophylaxis: IV heparin gtt
CODE STATUS: Full code
Total time spent on today's encounter was 35 minutes
Anticipated Discharge: 24 - 48 hours
Subjective/Interval History
-
Date of Service: December 02, 2024
Pt was seen and examined at bedside this morning. She is having abdominal pain at her surgical port sites, which appear CDI.
Objective Data
-
Labs:
Laboratory Results
12/02/24 12/02/24 12/02/24
05:28 05:29 11:34
WBC 10.8
Hgb 11.5 L 12.6
Hct 34.0 L 36.6 L
Plt Count 271
PT 19.1 H
INR 1.55
APTT 34.6 92.4 H
Sodium 139
Potassium 4.2
Chloride 105
Carbon Dioxide 25
BUN 14
Creatinine 0.7
Glucose 135 H
Calcium 8.6
Total Bilirubin 0.7
AST 183 H
ALT 506 H*
Alkaline Phosphatase 232 H
Vital Signs:
Vital Signs
Temp Pulse Resp BP Pulse Ox
97.9 F 85 20 145/80 97
12/02/24 11:30 12/02/24 11:30 12/02/24 11:30 12/02/24 11:30 12/02/24 11:30
I&O
12/01/24 12/02/24 12/03/24
06:59 06:59 06:59
Intake Total 157.8 / 157.8 530 / 530
Balance 157.8 / 157.8 530 / 530
Review of Systems
-
History Source: Patient
All other systems: Reviewed and negative
Abdomen/GI: Reports Abdominal Pain
Physical Exam
-
General: No Apparent Distress
[2024-12-02] MEDS: TORADOL 15 MG IV (15:25)
[2024-12-02 15:28] VITALS: BP 140/87
[2024-12-02 18:04] LABS: APTT 96.9 Sec (23.4-35.0)
[2024-12-02 18:50] LABS: Hepatitis B Surface Antigen Negative (Negative)
[2024-12-02 18:56] LABS: Hepatitis A IgM Antibody Negative (Negative); Hepatitis B Core Ab, IgM Negative (Negative)
[2024-12-02 19:08] LABS: Hepatitis B Surface Antibody Negative; Hepatitis C Antibody Negative (Negative)
[2024-12-02 19:58] VITALS: BP 118/63
[2024-12-02] MEDS: LIPITOR 10 MG PO (21:31)
[2024-12-03 00:33] VITALS: BP 121/63
[2024-12-03] MEDS: ROXICODONE 10 MG PO ×2 (00:33→17:21)
[2024-12-03 04:06] VITALS: BP 137/72
[2024-12-03] MEDS: DILAUDID 0.5 MG IV ×5 (04:49→22:36)
[2024-12-03 06:00] VITALS: BMI 34.8
[2024-12-03] MEDS: HEPARIN 25000 UNITS/250 ML IV (06:37)
[2024-12-03 06:46] LABS: % Basophils 0.7 % (0-2); % Eosinophils 1.1 % (0-6); % Immature Granulocytes 0.4 % (0-0.5); % Lymphocytes 27.2 % (20.5-51.1); % Monocytes 5.6 % (1.7-9.3); Absolute Basophils 0.1 10^3/uL (0-0.2); Absolute Eosinophils 0.1 10^3/uL (0-0.7); Absolute Lymphocytes 2.5 10^3/uL (1.2-3.4); Absolute Monocytes 0.5 10^3/uL (0.1-0.6); Absolute Neutrophils 5.9 10^3/uL (1.4-6.5); Mean Corp Hgb Conc. 33.3 g/dL (33.0-37.0); Mean Corpuscular Hgb 29.6 pg (27.0-31.0); Mean Corpuscular Volume 88.7 fL (81.0-99.0); Mean Platelet Volume 9.1 fL (7.4-10.4); Nucleated Red Blood Cells % 0 %; Platelet Count 287 10^3/uL (130-400); Red Blood Cell Count 3.72 10^6/uL (4.20-5.40); Red Cell Dist. Width 13.2 % (11.5-14.5); White Blood Cell Count 9.1 10^3/uL (4.8-10.8)
[2024-12-03 06:55] LABS: INR 1.34; PT 17.1 Sec (11.4-14.6)
[2024-12-03 06:57] LABS: APTT 87.9 Sec (23.4-35.0)
[2024-12-03 07:20] LABS: ALT (SGPT) 332 U/L (0-35); AST (SGOT) 68 U/L (14-36); Albumin 3.6 g/dl (3.5-5.0); Alkaline Phosphatase 192 U/L (38-126); Blood Urea Nitrogen 9 mg/dl (7-17); Carbon Dioxide 28 mmol/L (22-30); Chloride 105 mmol/L (98-107); Estimated Creatinine Clearance 96 ml/min; Glucose 115 mg/dl (70-99); Potassium 3.9 mmol/L (3.5-5.1); Sodium 140 mmol/L (135-145); Total Bilirubin 0.6 mg/dl (0.2-1.3); Total Protein 6.4 g/dl (6.3-8.2); eGFR > 60.00
[2024-12-03] MEDS: PROTONIX IV 40 MG IV (07:53)
[2024-12-03] MEDS: ULTRAM 100 MG PO ×2 (07:54→20:37)
[2024-12-03] MEDS: PROZAC 20 MG PO (07:54)
[2024-12-03] MEDS: WELLBUTRIN XL (24 hour extended release) 300 MG PO (07:54)
[2024-12-03] MEDS: NSS (PRESERVATIVE FREE) 10 ML IV (07:54)
[2024-12-03 07:59] VITALS: BP 112/67
[2024-12-03 11:14] VITALS: BP 119/58
--- NOTE | 2024-12-03 11:53 | CM ---
Spoke with patient bedside
Patient aware of CM availability should needs arise.
Patient ambulating in the halls.
Plan: home when stable.
--- NOTE | 2024-12-03 12:13 | W.PN.GS2 ---
Today's Communication / Plan
-
Recheck hemoglobin
Continue heparin drip
Assessment / Plan
-
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
--Continue heparin drip, hold on Lovenox until recheck Hb this afternoon. If stable okay for therapeutic Lovenox tonight and if morning hemoglobin remained stable can begin dispo planning with a Lovenox to Coumadin bridge at home.
-- Continue LFD
-- Pain control: Tylenol, Oxycodone, IV Dilaudid, will add Toradol if Hb stable later this AM
-- IVF
-- Antibiotics: no need for further from GS perspective, Concepcion MONTALVO'gagan
-- GI: PPI
Time Spent
Total Time Spent with Patient (in minutes): 20
Subjective Data
-
Date of Service: December 03, 2024
Interval Events:
No acute events overnight. Slept well. Pain Controlled. Denies Nausea/Vomiting. Tolerating diet. Hemoglobin slightly down again 11
Objective Data
-
Intake and Output
12/02/24 12/03/24 12/04/24
06:59 06:59 06:59
Intake Total 530 / 530 480 / 480
Balance 530 / 530 480 / 480
Intake:
Oral fluids 480 / 480 480 / 480
IV piggybacks 50 / 50
Other:
Number of approximated MODERATE 3 2
amounts of urine
Vital Signs
Temp Pulse Resp BP Pulse Ox
99 F 84 14 119/58 92
12/03/24 11:14 12/03/24 11:14 12/03/24 11:14 12/03/24 11:14 12/03/24 11:14
Lab Results
12/03/24 06:23
12/03/24 06:23
Calcium 9.0 mg/dl (8.4-10.2) 12/03/24 06:23
Total Bilirubin 0.6 mg/dl (0.2-1.3) 12/03/24 06:23
Direct Bilirubin 0.8 mg/dl (0.0-0.4) H 11/30/24 06:04
AST 68 U/L (14-36) H 12/03/24 06:23
ALT 332 U/L (0-35) H 12/03/24 06:23
Alkaline Phosphatase 192 U/L (38-126) H 12/03/24 06:23
Total Protein 6.4 g/dl (6.3-8.2) 12/03/24 06:23
Albumin 3.6 g/dl (3.5-5.0) 12/03/24 06:23
Physical Exam
-
GENERAL/NEURO: Awake, Alert, no distress
CHEST: Unlabored breathing on RA
ABDOMEN: Soft, appropriately tender, Non-Distended, incisions clean dry and intact.
Patient has a duron catheter: No
Patient has a central line: No
[2024-12-03 13:15] LABS: Hematocrit 32.3 % (37.0-47.0); Hemoglobin 10.7 g/dL (12.0-16.0)
--- NOTE | 2024-12-03 14:11 | W.PN.HOSP.TC ---
Today's Communication/Plan
-
Assessment / Plan
Assessment / Plan
General: No Apparent Distress, Comfortable and Conversant
HEENT: NormoCephalic, Moist mucous membranes, Atraumatic
Respiratory: Clear and Non Labored Respirations
Cardiac: S1/S2 and Regular Rhythm; No Rub or Gallop
GI: Soft, surgical port sites CDI, mod TTP, Non Distended and Normal Bowel Sounds
Musculoskeletal: No Edema, no deformity
Skin: Warm and dry
: NO Shah
Neuro: Awake, Alert, Nonfocal/grossly intact
Psych: Calm and Intact Judgment/Insight
Ms. Merrill is a 59-year-old female with a past medical history of hypercoagulable state with multiple unprovoked PEs (on warfarin) who presented with upper abdominal pain. Abdominal ultrasound shows gallbladder stones and sludge with gallbladder
wall thickening which is suspicious for acute cholecystitis. She was admitted for further evaluation and management.
Acute calculus cholecystitis:
- No evidence of choledocholithiasis on MRCP
- s/p lap kameron 12/01
- Last dose of warfarin Friday evening 11/28, INR subtherapeutic at 1.3, continuing heparin gtt
- Discontinued antibiotics
- Pain control
- Anticipate d/c to home tomorrow 12/04 with lovenox bridging to warfarin
Acute normocytic anemia:
- No significant perioperative blood loss
- Hemoglobin trending slightly down, 11.0 this morning and 10.7 on recheck this afternoon
- Continuing IV heparin drip for now
- If hemoglobin remains stable we will transition to Lovenox bridging to warfarin when okay with general surgery
Hypercoagulable state:
- History of multiple unprovoked PEs last of which was 10 years ago
- Anticoagulated with warfarin, INR today subtherapeutic at 1.3
- Continuing heparin gtt, will transition to Lovenox bridging to warfarin when okay with general surgery
DVT prophylaxis: IV heparin gtt
CODE STATUS: Full code
Total time spent on today's encounter was 35 minutes
Anticipated Discharge: Within 24 hours
Subjective/Interval History
-
Date of Service: December 03, 2024
Patient was seen and examined at bedside this morning. She has some ongoing abdominal pain but overall feels much better than at the time of admission. She is eager to go home but understands she will likely have to wait until tomorrow for ongoing
hemoglobin checks.
Objective Data
-
Labs:
Laboratory Results
12/03/24 12/03/24
06:23 13:02
WBC 9.1
Hgb 11.0 L 10.7 L
Hct 33.0 L 32.3 L
Plt Count 287
PT 17.1 H
INR 1.34
APTT 87.9 H
Sodium 140
Potassium 3.9
Chloride 105
Carbon Dioxide 28
BUN 9
Creatinine 0.7
Glucose 115 H
Calcium 9.0
Total Bilirubin 0.6
AST 68 H
ALT 332 H
Alkaline Phosphatase 192 H
Vital Signs:
Vital Signs
Temp Pulse Resp BP Pulse Ox
99 F 84 14 119/58 92
12/03/24 11:14 12/03/24 11:14 12/03/24 11:14 12/03/24 11:14 12/03/24 11:14
I&O
12/02/24 12/03/24 12/04/24
06:59 06:59 06:59
Intake Total 530 / 530 480 / 480
Balance 530 / 530 480 / 480
Review of Systems
-
History Source: Patient
All other systems: Reviewed and negative
Abdomen/GI: Reports Abdominal Pain
Physical Exam
-
General: No Apparent Distress
[2024-12-03 15:41] VITALS: BP 126/59
[2024-12-03] MEDS: LOVENOX 100 MG SC (18:17)
[2024-12-03] MEDS: LIPITOR 10 MG PO (20:37)
[2024-12-03 20:44] VITALS: BP 146/79
[2024-12-04 01:19] VITALS: BP 103/61
[2024-12-04 04:04] VITALS: BP 126/70
[2024-12-04] MEDS: DILAUDID 0.5 MG IV (05:31)
[2024-12-04] MEDS: LOVENOX 100 MG SC (05:33)
[2024-12-04 06:07] LABS: Hematocrit 31.7 % (37.0-47.0); Hemoglobin 10.7 g/dL (12.0-16.0); Mean Corp Hgb Conc. 33.8 g/dL (33.0-37.0); Mean Corpuscular Hgb 29.9 pg (27.0-31.0); Mean Corpuscular Volume 88.5 fL (81.0-99.0); Mean Platelet Volume 8.6 fL (7.4-10.4); Platelet Count 276 10^3/uL (130-400); Red Blood Cell Count 3.58 10^6/uL (4.20-5.40); Red Cell Dist. Width 13.2 % (11.5-14.5); White Blood Cell Count 6.4 10^3/uL (4.8-10.8)
[2024-12-04 06:18] LABS: APTT 36.4 Sec (23.4-35.0)
[2024-12-04 06:41] LABS: ALT (SGPT) 219 U/L (0-35); AST (SGOT) 36 U/L (14-36); Albumin 3.5 g/dl (3.5-5.0); Alkaline Phosphatase 149 U/L (38-126); Blood Urea Nitrogen 8 mg/dl (7-17); Calcium 9.2 mg/dl (8.4-10.2); Carbon Dioxide 29 mmol/L (22-30); Chloride 105 mmol/L (98-107); Estimated Creatinine Clearance 96 ml/min; Glucose 133 mg/dl (70-99); Potassium 3.8 mmol/L (3.5-5.1); Sodium 142 mmol/L (135-145); Total Bilirubin 0.4 mg/dl (0.2-1.3); eGFR > 60.00
[2024-12-04 07:00] VITALS: BP 137/77; BP 166/85
[2024-12-04] MEDS: ULTRAM 100 MG PO (08:42)
[2024-12-04] MEDS: WELLBUTRIN XL (24 hour extended release) 300 MG PO (08:42)
[2024-12-04] MEDS: PROTONIX IV 40 MG IV (08:43)
[2024-12-04] MEDS: NSS (PRESERVATIVE FREE) 10 ML IV (08:43)
[2024-12-04] MEDS: PROZAC 20 MG PO (09:58)
[2024-12-04] MEDS: TYLENOL 650 MG PO (10:00)
[2024-12-04] MEDS: ROXICODONE 10 MG PO (10:00)
[2024-12-04 11:00] VITALS: BP 137/77
--- NOTE | 2024-12-04 11:16 | W.PN.GS2 ---
Addendum entered and electronically signed by Cholo Lovelace MD 12/04/24 19:17:
I saw and examined the patient.
The DOOR TO DOOR SALESPERSON's note was reviewed and I agree with the note.
Original Note:
Today's Communication / Plan
-
Dispo planning
Assessment / Plan
-
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
h/h stable on heparin gtt
tolerating diet
AFVSS
-- Continue diet as tolerated
-- Oral analgesics for pain control
-- No need for continued abx
Ok for d/c to home on warfarin with lovenox bridge from surgical standpoint
Subjective Data
-
Date of Service: December 04, 2024
Patient seen and examined at bedside with Dr. Lovelace. Denies n/v. Tolerating diet. Passing flatus. Ambulating in hallways. Some pain to the upper abdomen but controlled with PO analgesics. Eager to go home.
Objective Data
-
Intake and Output
12/03/24 12/04/24 12/05/24
06:59 06:59 06:59
Intake Total 480 / 480 960 / 960
Balance 480 / 480 960 / 960
Intake:
Oral fluids 480 / 480 960 / 960
Other:
Number of approximated MODERATE 2 2
amounts of urine
Vital Signs
Temp Pulse Resp BP Pulse Ox
98.5 F 88 16 166/85 95
12/04/24 07:00 12/04/24 07:00 12/04/24 07:00 12/04/24 07:00 12/04/24 07:00
Lab Results
12/04/24 05:59
12/04/24 05:59
Calcium 9.2 mg/dl (8.4-10.2) 12/04/24 05:59
Total Bilirubin 0.4 mg/dl (0.2-1.3) 12/04/24 05:59
Direct Bilirubin 0.8 mg/dl (0.0-0.4) H 11/30/24 06:04
AST 36 U/L (14-36) 12/04/24 05:59
ALT 219 U/L (0-35) H 12/04/24 05:59
Alkaline Phosphatase 149 U/L (38-126) H 12/04/24 05:59
Total Protein 6.0 g/dl (6.3-8.2) L 12/04/24 05:59
Albumin 3.5 g/dl (3.5-5.0) 12/04/24 05:59
Physical Exam
-
GENERAL/NEURO: Awake, Alert, no distress
CHEST: Unlabored breathing on RA
ABDOMEN: Soft, appropriately tender, Non-Distended, incisions clean dry and intact.
Patient has a duron catheter: No
Patient has a central line: No
--- NOTE | 2024-12-04 11:27 | W.DCSUMMARY ---
Discharge Summary
Discharge Data
Date of Admission: 11/30/24
Date of Discharge: 12/04/24
-
Pending Results: No
Hospital Course
Ms. Merrill is a 59-year-old female with a past medical history of hypercoagulable state with multiple unprovoked PEs (on warfarin) who presented with upper abdominal pain. Abdominal ultrasound showed gallbladder stones and sludge with gallbladder
wall thickening suspicious for acute cholecystitis. She was admitted for further evaluation and management.
Her liver function tests showed significantly elevated transaminases within normal total bilirubin level. Further evaluation with MRCP showed no evidence of common bile duct obstruction. She was brought to the OR with general surgery on 12/01 for
laparoscopic cholecystectomy and intraoperative cholangiogram. She tolerated the procedure well and cholangiogram showed no evidence of obstruction. Her warfarin has been on hold since the evening of 11/28. She has been anticoagulated with IV
heparin initially which was later switched to weight-based Lovenox. She was monitored postoperatively for possible bleeding but her hemoglobin levels remained stable. Her liver function tests have dramatically improved following surgery. She will
be discharged to home with Lovenox bridging to warfarin. She will need lab work in a few days to monitor her INR, hemoglobin, and her liver function. She will need to follow-up with her primary care physician. She will also need to call the
general surgery office to arrange a follow-up appointment. She should not do any heavy lifting (anything over 15 pounds) for the next 2 to 3 weeks.
General: No Apparent Distress, Comfortable and Conversant
HEENT: NormoCephalic, Moist mucous membranes, Atraumatic
Respiratory: Clear and Non Labored Respirations
Cardiac: S1/S2 and Regular Rhythm; No Rub or Gallop
GI: Soft, surgical port sites CDI, mod TTP, Non Distended and Normal Bowel Sounds
Musculoskeletal: No Edema, no deformity
Skin: Warm and dry
: NO Shah
Neuro: Awake, Alert, Nonfocal/grossly intact
Psych: Calm and Intact Judgment/Insight
More than 30 minutes spent in discharge including
Final examination of the patient
Summarizing hospital stay
Instructions for continuing care to all relevant caregivers
Preparation of discharge records, prescriptions, and referral forms
Total time spent (in minutes): 55
Discharge Plan
-
Patient Disposition: Home (Routine Discharge)
Discharge Diagnosis/Procedures: Acute calculus cholecystitis
Diet: As tolerated
Additional Diets: If you have loose stools after surgery, switch to a low fat diet
Activity: No strenuous activity
Additional Activity: Do not lift over 15lbs for the next 2-3 weeks
Bathing Restrictions: OK to Shower
Blood Work: Liver function test, INR, hemoglobin (please obtain 2-3 days after discharge)
Wound Care: Allow the glue to flake off your incisions on its own over the next 2-3 weeks. Do not swim or soak in tubs/pools until incisions well healed.
Activity Restrictions/Additional Instructions:
Call your surgeon if you have a fever >100.5, nausea with vomiting or worsening abdominal pain
Ms. Merrill is a 59-year-old female with a past medical history of hypercoagulable state with multiple unprovoked PEs (on warfarin) who presented with upper abdominal pain. Abdominal ultrasound showed gallbladder stones and sludge with gallbladder
wall thickening suspicious for acute cholecystitis. She was admitted for further evaluation and management.
Her liver function tests showed significantly elevated transaminases within normal total bilirubin level. Further evaluation with MRCP showed no evidence of common bile duct obstruction. She was brought to the OR with general surgery on 12/01 for
laparoscopic cholecystectomy and intraoperative cholangiogram. She tolerated the procedure well and cholangiogram showed no evidence of obstruction. Her warfarin has been on hold since the evening of 11/28. She has been anticoagulated with IV
heparin initially which was later switched to weight-based Lovenox. She was monitored postoperatively for possible bleeding but her hemoglobin levels remained stable. Her liver function tests have dramatically improved following surgery. She will
be discharged to home with Lovenox bridging to warfarin. She will need lab work in a few days to monitor her INR, hemoglobin, and her liver function. She will need to follow-up with her primary care physician. She will also need to call the
general surgery office to arrange a follow-up appointment. She should not do any heavy lifting (anything over 15 pounds) for the next 2 to 3 weeks.
Stand Alone Forms: Return to Work
Referrals:
Ej Luna MD [Active] - in two to four weeks
Jared Thompson MD [Family Provider] -
Prescriptions:
New
enoxaparin 100 mg/mL Syringe
100 mg SC Q12H Qty: 20 0RF
oxycodone-acetaminophen [Percocet] 10-325 mg tablet
1 tab PO Q8H PRN (Reason: breakthrough pain) Qty: 10 0RF
Continued
tramadol 50 MG tablet
100 mg PO BID
cholecalciferol (vitamin D3) [Vitamin D3] 400 UNITS tablet
2,000 units PO DAILY
Multi For Her 1 EACH capsule
1 ea PO DAILY
simvastatin 20 MG tablet
20 mg PO HS
ferrous gluconate 256 MG tablet
28 mg PO BID
Patient Comments:
patient ordered 28 mg tablet, difficulty making this entry.
tramadol-acetaminophen 37.5-325 mg Tablet
1 tab PO BID PRN (Reason: Pain)
warfarin 10 mg Tablet
10 mg PO MOTUWETHFRSA
fluoxetine 20 mg Tablet
20 mg PO DAILY
dextroamphetamine-amphetamine 20 mg Tablet
20 mg PO BID
warfarin 5 mg Tablet
5 mg PO DOAN
bupropion HCl 300 mg Tablet Extended Release 24 Hr
300 mg PO DAILY
riboflavin (vitamin B2) 400 mg Tablet
400 mg PO DAILY
Discharge Orders:
Discharge Patient (As Directed); Ordered 12/04/24
Ordered By: Gavin Saucedo
Discharge Date and Time
Print Language: YEMENI
--- NOTE | 2024-12-04 15:15 | CM ---
Pt for dc today. No needs identified.
== END 2024-12-04 13:39 | disposition home or self-care (01) | DRG 418 ==
LOC: 3 WEST ACU 03:51
PROVIDERS: Emergency Medicine; Registered Nurse; ADMITTING PHYSICIAN Hospitalist; ATTENDING PHYSICIAN Internal Medicine; CONSULT PHYSICIAN Internal Medicine Gastroenterology; CONSULT PHYSICIAN Surgery; EMERGENCY PHYSICIAN Emergency Medicine; FAMILY PHYSICIAN Family Medicine
PROC: 30233K1 Transfusion of Nonautologous Frozen Plasma into Peripheral Vein, Percutaneous Approach (ICD-10-PCS; 2024-12-01)
PROC: 0FT44ZZ Resection of Gallbladder, Percutaneous Endoscopic Approach (ICD-10-PCS; 2024-12-03)
PROC: BF131ZZ Fluoroscopy of Gallbladder and Bile Ducts using Low Osmolar Contrast (ICD-10-PCS; 2024-12-03)
DX: K80.66 Calculus of gallbladder and bile duct with acute and chronic cholecystitis without obstruction (principal); D68.59 Other primary thrombophilia; Z86.711 Personal history of pulmonary embolism; F32.A Depression, unspecified; F41.9 Anxiety disorder, unspecified; G89.29 Other chronic pain; Z87.891 Personal history of nicotine dependence; Z88.8 Allergy status to other drugs, medicaments and biological substances; Z91.048 Other nonmedicinal substance allergy status; Z79.01 Long term (current) use of anticoagulants; E78.00 Pure hypercholesterolemia, unspecified; Z79.899 Other long term (current) drug therapy; F90.9 Attention-deficit hyperactivity disorder, unspecified type; E66.01 Morbid (severe) obesity due to excess calories; J44.89 Other specified chronic obstructive pulmonary disease; Z86.718 Personal history of other venous thrombosis and embolism
CPT/HCPCS: 88304; 71275; 74183; 74300; 76000; 76705; 80048; 80053; 80076; 83690; 84484; 85014; 85018; 85025; 85027; 85610; 85730; 86705; 86706; 86709; 86803; 86850; 86900; 86901; 87340; 93005; 96365; 96375; 99285; A4300; A9575; P9059; Q9967